=== PATIENT | female | born 1940 | race Caucasian/White ===

== ENCOUNTER → 2017-02-07 | Outpatient (CLI) | payer MEDICARE, OTHER ==
[~2017-02-07] MED LIST: ACET-2321 PO; CYAN10006 SQ; NEBI5TAB8 PO; PANT20TA13 PO; SUCR1TAB PO
--- NOTE | 2017-02-07 13:12 | DI ---
Indication: ITS.REASON: K44.9 Diaphragmatic hernia without obstruction or gangrene PROCEDURE: US GALLBLADDER: Encounter: Initial Comparison: None Technique: Grayscale and color Doppler sonographic imaging of the right upper quadrant of the abdomen was performed. Findings: Hepatic parenchyma is homogeneous without evidence for focal mass. The gallbladder is normal. There is no wall thickening, pericholecystic fluid, sonographic Mann's sign or cholelithiasis. Both the intra and extrahepatic biliary system are of normal caliber with the common duct measuring 4 mm in dimension. Visualized portions of the head and body of the pancreas are unremarkable. The right kidney is present without collecting system dilatation. The right kidney measures 10.0 cm in length. Impression: Normal right upper quadrant sonogram. .
== END ==
LOC: IMA 10:21
PROVIDERS: ATTEND Internal Medicine
DX: K44.9 Diaphragmatic hernia without obstruction or gangrene (principal)

== ENCOUNTER → 2017-02-14 | Outpatient (CLI) | payer MEDICARE, OTHER | LOC: WC.BC 12:24 | PROVIDERS: ATTEND Family Medicine | DX: Z12.31 Encounter for screening mammogram for malignant neoplasm of breast (principal); N64.59 Other signs and symptoms in breast; M85.88 Other specified disorders of bone density and structure, other site; E28.319 Asymptomatic premature menopause; Z78.0 Asymptomatic menopausal state; Z90.722 Acquired absence of ovaries, bilateral | CPT/HCPCS: 77063; 77080; G0202 ==

== ENCOUNTER → 2017-02-16 | Outpatient (CLI) | payer MEDICARE, OTHER ==
[~2017-02-16] MED LIST changes: +SALINE FLUSH 10ml SYRINGE ONE; +SINCALIDE 5 MCG/VIAL IJ ONE; +SODIUM CHLORIDE (Bacteriostatic) 30ml VIAL ONE
--- NOTE | 2017-02-16 16:29 | DI ---
Indication: ITS.REASON: R10.11 RUQ PAIN PROCEDURE: NM HEPATOBIL/EF: Encounter: Initial Comparison: Gallbladder ultrasound dated February 07, 2017 Technique: 6.6 mCi of Tc-99m mebrofenin was injected intravenously. At approximately 61 minutes following this administration, 2.6 mcg of Kinevac was administered intravenously. Anterior planar images were obtained and a time/activity curve was calculated. FINDINGS: Radiotracer uptake is seen homogenously within the liver. There is normal clearance of radiotracer from the blood pool. The common bile duct is visualized at approximately 7 minutes. The gallbladder is visualized by 9 minutes, and radiotracer is excreted into the small bowel. There is no evidence of radiotracer outside the biliary or gastrointestinal tract. The gallbladder ejection fraction is normal at 93%. IMPRESSION: 1. Gallbladder visualization excluding acute cholecystitis. 2. Normal gallbladder ejection fraction of 93%, excluding biliary dyskinesia. .
== END ==
LOC: IMA 13:50
PROVIDERS: ATTEND Family Medicine
DX: R10.11 Right upper quadrant pain (principal)
CPT/HCPCS: 78227; A9537; J2805

== ENCOUNTER → 2017-02-22 | Outpatient (CLI) | payer MEDICARE, OTHER ==
[~2017-02-22] MED LIST changes: +IOHEXOL 300 MG/ML 100ml INJECTION ONE; +NORMAL SALINE 100 ML ONE; -SINCALIDE 5 MCG/VIAL IJ ONE; -SODIUM CHLORIDE (Bacteriostatic) 30ml VIAL ONE
--- NOTE | 2017-02-22 12:20 | DI ---
Indication: ITS.REASON: R10.9 ABD PAIN PROCEDURE: CT ABD/PELVIS W/CONTRAST ONLY: Encounter: Initial Comparison: Gallbladder ultrasound dated February 07, 2017 Technique: Axial CT images were performed through the abdomen and pelvis after the administration of intravenous contrast. Coronal and sagittal two-dimensional reformats. Automated Exposure Control and Iterative Reconstruction dose reducing techniques were utilized. Contrast: Omnipaque 300 100 mL Findings: Partially intrathoracic stomach with evidence of volvulus. The pyloric region is located in the chest superior to the GE junction which is below the diaphragm. Stomach is herniated into the left chest and is significantly distended with fluid. There is also significant distention of the body of the stomach below the diaphragm in the abdomen. The liver appears normal. The gallbladder is unremarkable. The spleen, pancreas and adrenal glands are within normal limits. The kidneys are normal. No abdominal or pelvic lymphadenopathy. Bladder is normal. Uterus is absent. No free fluid. Sigmoid diverticulosis without evidence of acute diverticulitis. No evidence of small bowel obstruction. The duodenal sweep does not fully cross the midline however and the SMV is located to the left of the SMA raising suggesting malrotation. The cecum is normally located however. The appendix is normal. Bone windows show degenerative and postoperative changes in the lumbar spine. Impression: 1. 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 This type of volvulus does place the patient at risk for vascular compromise. Surgical evaluation is recommended. 2. 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 Impression 1. was discussed with Dr. Cottrell software validation engineer for the ordering physician Dr. Grayson at 1210 on February 22, 2017. .
== END ==
LOC: IMA 09:52
PROVIDERS: ATTEND Family Medicine
DX: K44.0 Diaphragmatic hernia with obstruction, without gangrene (principal); K31.89 Other diseases of stomach and duodenum
CPT/HCPCS: 74177; J7050; Q9967